=== PATIENT | female | born 1970 | race Caucasian/White ===

== ENCOUNTER 2016-10-31 03:41 | Emergency (ER) | payer MEDICAID ==
[~2016-10-31] VITALS: Ht 170.2 cm; Wt 68.0 kg
[2016-10-31] MEDS ORDERED: KETOROLAC 60MG/2ML VIAL IM ONE (08:45)
[2016-10-31 11:17] VITALS: BP 117/72
== END 2016-10-31 11:19 | disposition home or self-care (01) ==
LOC: ER 08:44
DX: M62.838 Other muscle spasm (principal); F19.10 Other psychoactive substance abuse, uncomplicated; Z98.51 Tubal ligation status; Z86.19 Personal history of other infectious and parasitic diseases
CPT/HCPCS: 81025; 96372; 99283; J1885

== ENCOUNTER 2022-11-06 19:29 | Emergency (ER) | payer SELFPAY ==
[~2022-11-06] VITALS: Ht 160 cm; Wt 64.0 kg
[2022-11-06 20:02] VITALS: O2SAT 100
[2022-11-06] MEDS ORDERED: NAPR-1074 MT (21:59)
[2022-11-06] MEDS ORDERED: BACL-141 MT (21:59)
[2022-11-06] MEDS ORDERED: ACETAMINOPHEN 325MG TABLET PO ONE (22:00)
[2022-11-06] MEDS ORDERED: LIDOCAINE 5% PATCH TOP ONE (22:00)
[2022-11-06] MEDS ORDERED: DEXAMETHASONE 10 MG/ML VIAL IM ONE (22:00)
[2022-11-06] MEDS ORDERED: KETOROLAC 60MG/2ML VIAL IM ONE (22:00)
[2022-11-07 00:15] VITALS: BP 131/77; PULSE 74; RESP 18; TEMP 97.9
== END 2022-11-07 00:15 | disposition home or self-care (01) ==
LOC: ER 19:29
DX: M54.50 Low back pain, unspecified (principal); G89.29 Other chronic pain; J45.909 Unspecified asthma, uncomplicated; Z98.51 Tubal ligation status; Z00.00 Encounter for general adult medical examination without abnormal findings
CPT/HCPCS: 99284; 96372; J1100; J1885